=== PATIENT | female | born 1960 | race African-American/Black ===

== ENCOUNTER 2024-06-06 09:53 | Emergency (ER) | payer OTHER ==
[~2024-06-06] VITALS: Ht 162.6 cm; Wt 125.4 kg
[2024-06-06 10:26] VITALS: BP 165/76; PULSE 76; RESP 16; TEMP 98.9; O2SAT 97
[2024-06-06 11:40] LABS: COVID19 ANTIGEN SOFIA FIA NEGATIVE (NEGATIVE); Rapid Influenza A Negative (Negative); Rapid Influenza B Negative (Negative)
[2024-06-06] MEDS ORDERED: ALBUAER3 IN (12:03)
[2024-06-06] MEDS ORDERED: METH4PAK PO (12:03)
[2024-06-06] MEDS ORDERED: BENZ100C97 PO (12:03)
[2024-06-06] MEDS ORDERED: ACET500T58 PO (12:03)
[2024-06-06] MEDS ORDERED: PROM1SOL4 PO (12:03)
--- NOTE | 2024-06-06 12:03 | ED.PDOC ---
History of Present Illness HPI Comments 63-year-old female with no MHx presents with a chief complaint of URI symptoms x7 days. Complains of a sore throat, nasal congestion, nonproductive cough, myalgia, malaise Taken [id number] Tylenol as needed Denies fevers chills night sweats unintentional weight loss Denies persistent chest pain, shortness of breath, leg swelling Denies history of asthma nor any breathing conditions Denies history of pneumonia Denies recent international travel Chief Complaint: Flu like Time Seen by MD: 10:13 Reviewed Notes: Nurses Notes, Medications, Allergies Information Source: Patient Past Medical History PAST MEDICAL HISTORY: Denies Surgical History: Denies all surgeries BARREL BUILDER History: No 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 History Family History Family History: Reviewed,noncontributory to illness Social History Smoker: Non-Smoker Alcohol: Denies ETOH Use Drugs: Denies Drug Use All Other Systems: Reviewed and Negative (Per HPI) Physical Exam General Appearance: No Apparent Distress, Normal HEENT: Normal ENT Inspection, Pharynx Normal, TMs Normal Neck: Full Range of Motion, Non-Tender, Normal, Normal Inspection Respiratory: Chest Non-Tender, Lungs Clear, No Accessory Muscle Use, No Respiratory Distress, Normal Breath Sounds Cardiovascular: No Edema, No JVD, No Murmur, No Gallop, Normal Peripheral Pulses, Regular Rate/Rhythm Breast Exam: Deferred Gastrointestinal: No Organomegaly, Non Tender, No Pulsatile Mass, Normal Bowel Sounds, Soft Genitalia: Deferred Pelvic: Deferred Rectal: Deferred Extremities: No calf tenderness, Normal capillary refill, Normal inspection, Normal range of motion, Non-tender, No pedal edema Musculoskeletal : Apperance: Normal Neurologic: Alert, dictaphone typist II-XII nml as Tested, No Motor Deficits, Normal Affect, Normal Mood, No Sensory Deficits Cerebellar Function: Normal Reflexes: Normal Skin: Dry, Normal Color, Warm Lymphatic: No Adenopathy Was a procedure done? Was a procedure done?: No Fever Differential Dx Differential Diagnosis: Influenza, Viral Syndrome X-Ray, Labs, Meds, VS Vital Signs Date Time Temp Pulse Resp B/P (MAP) Pulse Ox O2 Delivery O2 Flow Rate FiO2 06/06/24 10:26 76 16 97 Room Air 06/06/24 10:26 98.9 76 16 165/76 (105) 97 98.9 06/06/24 10:05 98.9 76 16 165/76 (105) 97 Lab Test 06/06/24 10:35 Range/Units Influenza Type A Antigen Negative Negative Influenza Type B Antigen Negative Negative SARS-CoV-2 Antigen (Rapid) Negative NEGATIVE X-Ray, Labs, Meds, VS Comment On presentation, the patient is afebrile and has stable vital signs. The pat ient is overall well-appearing nontoxic on exam. On physical exam, respirations even and unlabored, clear to auscultation bilate rally. Oxygen stable on room air. Did not have any focal lung findings and therefore chest x-ray was not indicated during this exam Low suspicion of strep pharyngitis given physical exam findings and patient's presenting symptoms No signs of meningismus on exam Overall, the patient is well hydrated and nontoxic. Plan for symptomatic control for fever and pain as needed. The patient was able to tolerate p.o. intake in the ED. at this time, patient is safe for discharge home. The exam findings and plan discussed. We will discharge home with PCP follow up and strict return precautions. Discussed that cough can linger up to 6 weeks after viral URI Supportive care and return precautions discussed Counseled viral infection and explained that antibiotics would not be helpful in resolving the illness sooner. Recommended vitamin C, rest, handwashing, and symptomatic care. Expect 2-week course with possibly of cough lingering up to 6 weeks. Nonpharmacological remedies for fluids has been recommended as well Time of 1ST Reevaluation: 12:00 Reevaluation 1ST: Unchanged Patient Education/Counseling: Diagnosis, Treatment Family Education/Counseling: Diagnosis, Treatment Departure 1 Departure Time of Disposition: 12:01 Impression: Primary Impression: Bronchitis Disposition: 01 HOME / SELF CARE / HOMELESS Condition: Stable e-Prescriptions Acetaminophen (Acetaminophen) 500 Mg Tab 500 MG PO Q6HP PRN for 7 Days, #28 TAB 0 Refills Prov: ISAAC PINON STORAGE ARCHITECT 06/06/24 Promethazine-Dm (Promethazine Dm 6.25-15 mg/5Ml) 1 Leyla Leyla 5 ML PO Q8HP PRN for 10 Days, #150 ML 0 Refills Prov: ISAAC PINON [employer] ARCHITECT 06/06/24 Benzonatate (Benzonatate) 100 Mg Cap 1 CAP PO TID for 10 Days, #30 CAP 0 Refills Prov: ISAAC PINON [employer]AGE ARCHITECT 06/06/24 Methylprednisolone (Medrol Dosepak) 4 Mg Paddy 4 MG PO UD for 7 Days, #21 TAB 0 Refills UAD Prov: ISAAC PINON [employer]ORAGE ARCHITECT 06/06/24 Albuterol Sulfate (VENTOLIN MDI) 90 Mcg Ih 90 MCG IN Q6HPRN PRN for 3 Days, #1 INH 0 Refills Prov: ISAAC PINON [employer]OR[employer] ARCHITECT 06/06/24 Discharged With: Self Critical Care Note Critical Care Time?: No Stability Stability form required: No Heart Score Heart Score: Heart Score Response (Comments) Value History N/A 0 EKG N/A 0 Age N/A 0 Risk Factors N/A 0 Troponin N/A 0 Total 0 ISAAC PINON [employer]OR[employer] ARCHITECT Jun 06, 2024 12:03
== END 2024-06-06 12:22 | disposition home or self-care (01) ==
LOC: ER 09:53
DX: J40 Bronchitis, not specified as acute or chronic (principal); Z20.822 Contact with and (suspected) exposure to COVID-19
CPT/HCPCS: 36415; 87426; 87804